=== PATIENT | female | born 1960 | race Caucasian/White ===

== ENCOUNTER 2024-04-19 14:23 | Emergency (ER) | payer OTHER, SELFPAY ==
[2024-04-19 14:34] VITALS: BP 143/96
[2024-04-19 15:14] LABS: % Basophils 0.5 % (0-2); % Eosinophils 1.8 % (0-6); % Immature Granulocytes 0.2 % (0-0.5); % Monocytes 6.8 % (1.7-9.3); % Neutrophils 64.7 % (42.2-75.2); Absolute Eosinophils 0.1 10^3/uL (0-0.7); Absolute Lymphocytes 1.6 10^3/uL (1.2-3.4); Absolute Monocytes 0.4 10^3/uL (0.1-0.6); Absolute Neutrophils 3.9 10^3/uL (1.4-6.5); Hematocrit 36.8 % (37.0-47.0); Hemoglobin 13.1 g/dL (12.0-16.0); Mean Corp Hgb Conc. 35.6 g/dL (33.0-37.0); Mean Corpuscular Hgb 35.5 pg (27.0-31.0); Mean Corpuscular Volume 99.7 fL (81.0-99.0); Mean Platelet Volume 9.1 fL (7.4-10.4); Nucleated Red Blood Cells % 0 %; Platelet Count 241 10^3/uL (130-400); Red Blood Cell Count 3.69 10^6/uL (4.20-5.40); Red Cell Dist. Width 11.9 % (11.5-14.5)
[2024-04-19 15:28] LABS: Alcohol 31 mg/dl; Blood Urea Nitrogen 18 mg/dl (7-17); Calcium 9.5 mg/dl (8.4-10.2); Carbon Dioxide 25 mmol/L (22-30); Chloride 104 mmol/L (98-107); Glucose 89 mg/dl (70-99); Potassium 3.5 mmol/L (3.5-5.1); Sodium 139 mmol/L (135-145); eGFR > 60.00
[2024-04-19 15:43] LABS: Amphetamines Negative (Negative); Barbiturates Negative (Negative); Benzodiazepines Positive (Negative); Buprenorphine Negative (Negative); Cocaine Negative (Negative); Marijuana Positive (Negative); Methadone Negative (Negative); Methamphetamines Negative (Negative); Opiates Negative (Negative); Phencyclidine Negative (Negative); Tricyclic Antidepressants Negative (Negative)
--- NOTE | 2024-04-19 15:46 | ED TECH ---
A Call was placed to -[facility] @15:45 PM.
[2024-04-19 16:26] LABS: Fentanyl, Urine Negative (Negative)
--- NOTE | 2024-04-19 17:53 | ED.GENMED ---
History of Present Illness
General
Chief Complaint: Alcohol Problem
Source: patient
Exam Limitations: none
Time Seen by Provider: 04/19/24 17:45
Nursing documentation reviewed up to this point in time: agreed with
Travel History
Have you had any contact with someone who has COVID-19?: No
Do you have any symptoms of coronavirus? Fever > 100 degrees, chills, cough, shortness of breath, sore throat, loss of taste or smell, muscle aches, or headache?: No
History of Present Illness
History of Present Illness:
Patient to ED requesting rehab for alcohol abuse. H bipolar disorder. Advised by her psychiatrist to come to ED for admission to rehab. She reports her last drink was 1 week ago. Brought to ED by spouse.
Past History
Past History
ED Past Medical History: Psychiatric (Bipolar disorder, alcohol abuse)
Social History
Tobacco: Non-smoker
Alcohol: Daily
Drug: None
Review of Systems
Review of Systems
Allergies reviewed?: Yes
All Other Systems: ROS reviewed and negative except as documented in HPI and ROS
Constitutional: Reports no symptoms
EENT: Reports no symptoms
Respiratory: Reports no symptoms
Cardiac: Reports no symptoms
ABD/GI: Reports no symptoms
: Reports no symptoms
Musculoskeletal: Reports no symptoms
Skin: Reports no symptoms
Neurological: Reports no symptoms
Psychiatric: Reports no symptoms
Phy Exam
General Physical Exam
General Presentation: well appearing and no apparent distress
General age: appears stated age
General Skin: warm and dry
General Habitus: normal
General Mental: alert
General Hydration: appears well hydrated
Neurological Exam
Neurological Exam: alert, oriented x3, no motor deficits, no sensory deficits and speech normal
Musculoskeletal Exam
Musculoskeletal Exam: full ROM and neuro vasc intact
Skin Exam
Skin Exam: normal color, warm/dry and no rash
Psychiatric Exam
Psychiatric Exam: normal mood/affect
Scores
Withdrawal Assessment of Alcohol
Withdrawal Assessment Completed?: Yes
Nausea and Vomiting: No nausea and no vomiting
Tactile Disturbances: None
Tremor: No tremor
Auditory Disturbances: Not present
Paroxysmal Sweats: No sweat visible
Visual Disturbances: Not present
Anxiety: No anxiety, at ease
Headache, Fullness in Head: Not present
Agitation: Normal activity
Orientation and clouding of sensorium: Oriented and can do serial additions
Total CIWA Score: 0
Alcohol Withdrawal Medication Recommendation: Equal to MSAS Score 0-4. Monitor & re-assess q2hrs, NO MEDICATION NEEDED
Course
Orders/Labs/Results
Orders:
Orders
04/19/24 14:37
Electrocardiogram (*1) Urgent
Reason for Study: Other
Other Reason for Exam: placement
EKG- Treatment ONCE
04/19/24 14:53
Alcohol Urgent
Basic Metabolic Panel Urgent
Complete Blood Count/With Diff Urgent
Fentanyl, Urine Urgent
Urine Drug Abuse Screen Urgent
Date Specimen was Collected: 04/19/24
Time Specimen was Collected: 14:37
Abnormal Lab Results
04/19/24
14:53
RBC 3.69 L 10^6/uL
(4.20-5.40)
Hct 36.8 L %
(37.0-47.0)
MCV 99.7 H fL
(81.0-99.0)
MCH 35.5 H pg
(27.0-31.0)
BUN 18 H mg/dl
(7-17)
U Benzodiazepines Scrn Positive H
(Negative)
U Marijuana (THC) Screen Positive H
(Negative)
04/19/24 14:53
04/19/24 14:53
Vital Signs
Initial and Last Documented VS:
Initial Vital Signs
Temp Pulse Resp BP Pulse Ox
98.5 F 107 18 143/96 96
04/19/24 14:34 04/19/24 14:34 04/19/24 14:34 04/19/24 14:34 04/19/24 14:34
Last Documented Vital Signs
Temp Pulse Resp BP Pulse Ox
97.7 F 85 18 148/86 98
04/19/24 19:00 04/19/24 19:00 04/19/24 14:34 04/19/24 19:00 04/19/24 19:00
*Critical Care Note
Total Time (30-74mins, 75-104mins- exclusive of procedures): Not Applicable
Update Note
Update Note:
MEdically stable for inpatient rehab care. Pateint and spouse have decided that they would like to go home and drive to facility in AM. Bcares aware. Patient is discharged home from ED.
ED Attending Note
-
Portions of this chart may have been created with voice recognition software.� Occasional wrong word or��sound alike� substitutions may have occurred due to the inherent limitations of voice recognition software.
Discharge Plan
Departure
Patient Disposition: Home (Routine Discharge)
Date of Disposition: 04/19/24
Time of Disposition: 19:07
Patient with high blood pressure during this ER visit?: No
Condition: Good
Covid-19: Not Applicable
Discharge Problem:
Alcohol abuse
Instructions: Alcohol Use Disorder (DC)
Referrals:
UNKNOWN - PT DOES,NOT KNOW [Family Provider] -
Activity Restrictions/Additional Instructions:
Follow up with Cindy Alvarez in the AM as you discussed with Rory.
Interventions
Interventions:
*Risk Screen - Suicide Last Done: 04/19/24 19:00
*General Assessment Last Done: 04/19/24 19:00
*Neglect/Abuse Screening Last Done: 04/19/24 19:00
*ED COVID-19 Vaccine History Last Done: 04/19/24 19:00
*Nursing Disposition Last Done: 04/19/24 19:00
ED- Neurological Assessment Last Done: 04/19/24 17:40
ED-Psychological Assessment Last Done: 04/19/24 17:40
Discharge Date and Time
Discharge Date/Time: 04/19/24 19:10
Print Language: UKRAINIAN
[2024-04-19 19:00] VITALS: BP 148/86
== END 2024-04-19 19:10 | disposition home or self-care (01) ==
LOC: EMR 14:23
PROVIDERS: Emergency Medicine; EMERGENCY PHYSICIAN Emergency Medicine
DX: F10.10 Alcohol abuse, uncomplicated (principal); F31.9 Bipolar disorder, unspecified; Z88.2 Allergy status to sulfonamides
CPT/HCPCS: 99283; 80048; 80306; 80307; 82077; 85025; 93005